=== PATIENT | male | born 1965 | race American Indian/Alaskan Native ===

== ENCOUNTER 2022-04-12 03:20 | Emergency (ER) | payer OTHER ==
[2022-04-12 04:12] LABS: ANION GAP 21.4 mEq/L (7-13); CHLORIDE,CL 106 mmol/L (98-107); ESTIMATED GFR 92 mL/min (>=60); SODIUM,NA 148 mmol/L (136-145)
== END 2022-04-12 05:03 | disposition left against medical advice (07) ==
LOC: DL.ED 03:20
DX: S00.03XA Contusion of scalp, initial encounter (principal); Z88.8 Allergy status to other drugs, medicaments and biological substances; Z79.82 Long term (current) use of aspirin; Z86.16 Personal history of COVID-19; W26.8XXA Contact with other sharp object(s), not elsewhere classified, initial encounter
CPT/HCPCS: 36415; 70450; 72125; 80053; 80307; 83735; 85025; 99282; 99284

== ENCOUNTER 2023-04-14 05:43 | Day surgery (SDC) | payer MEDICAID ==
[2023-04-14] MEDS ORDERED: Midazolam 1 MG/ML 2 ML SDV IV ONE ×3 (05:44→07:10)
[2023-04-14] MEDS ORDERED: fentaNYL 100 MCG/2 ML SDV IV ONE ×3 (05:44→07:09)
[2023-04-14] MEDS ORDERED: Dextrose 5%-0.45% NaCl 1,000 ML IV SCH (06:00)
[2023-04-14] MEDS ORDERED: fentaNYL 100 MCG/2 ML SDV ONE (06:15)
[2023-04-14] MEDS ORDERED: Midazolam 1 MG/ML 2 ML SDV ONE (06:15)
== END 2023-04-14 09:15 | disposition home or self-care (01) ==
LOC: DL.ENDO 05:43
PROVIDERS: ATTEND Internal Medicine Gastroenterology
DX: J44.9 Chronic obstructive pulmonary disease, unspecified (principal); K21.9 Gastro-esophageal reflux disease without esophagitis; F17.210 Nicotine dependence, cigarettes, uncomplicated; F12.90 Cannabis use, unspecified, uncomplicated; Z88.8 Allergy status to other drugs, medicaments and biological substances; Z98.890 Other specified postprocedural states; Z68.32 Body mass index [BMI] 32.0-32.9, adult
CPT/HCPCS: 87077; J2250; J3010; J7042

== ENCOUNTER 2024-12-28 16:05 | Emergency (ER) | payer MEDICAID ==
[2024-12-28] MEDS ORDERED: Pantoprazole 40 MG in Sodium Chloride 0.9% 100 ML IV SCH ×2 (16:12→17:00)
[2024-12-28] MEDS ORDERED: Pantoprazole 80 MG in Sodium Chloride 0.9% 100 ML IV SCH ×2 (16:15→16:30)
[2024-12-28 16:17] LABS: BASOPHILS PERCENT AUTO 0.1 % (0.0-1.0); HEMATOCRIT 46.4 % (40.0-54.0); HEMOGLOBIN 15.7 g/dL (14.0-18.0); LYMPHOCYTES PERCENT AUTO 11.3 % (20.5-50.1); MEAN CORPUSCULAR HEMOGLOBIN 30.1 pg (27.0-34.0); MEAN CORPUSCULAR HGB CONC 33.8 g/dL (33.0-35.0); MEAN CORPUSCULAR VOLUME 88.9 fL (80-100); MONOCYTES PERCENT AUTO 8.7 % (2-8); NEUTROPHILS PERCENT AUTO 79.9 % (42.2-75.2); PLATELET COUNT,PLT 226 10^3/uL (150-450); RED BLOOD CELL COUNT 5.22 10^6/uL (4.6-6.2); WHITE BLOOD CELL COUNT,WBC 21.9 10^3/uL (5.0-10.0)
[2024-12-28] MEDS: Pantoprazole 40 MG Vial IV ONE (16:29)
[2024-12-28 16:35] LABS: INR 1.1 (0.9-1.2); PTT,PARTIAL THROMBOPLSTIN TIME 26.3 SEC (22.0-34.0)
[2024-12-28] MEDS: Ondansetron 4 MG/2 ML SDV IVPUSH ONE ×2 (16:36→19:18)
[2024-12-28] MEDS: Ondansetron 4 MG/2 ML SDV ONE (16:37)
[2024-12-28] MEDS: Thiamine 200 MG in Sodium Chloride 0.9% 1,000 ML IV ONE (16:38)
[2024-12-28] MEDS: cefTRIAXone 1 GM Vial IVPUSH ONE (16:38)
[2024-12-28 16:41] LABS: A/G RATIO 1.1; ALBUMIN 3.8 g/dL (3.4-5.0); ANION GAP 13.3 mEq/L (7-13); BILIRUBIN TOTAL 0.9 mg/dL (0.2-1.0); BUN/CREATININE RATIO 23.5 (No establ ref range); CALCIUM 8.9 mg/dL (8.5-10.1); CREATININE 0.85 mg/dL (0.70-1.30); EST CRCL DRUG DOSING (CG) 92.76 mL/min; POTASSIUM,K 3.3 mmol/L (3.5-5.1); PROTEIN TOTAL,TP 7.4 g/dL (6.4-8.2)
[2024-12-28 16:45] LABS: LACTIC ACID 2.5 mmol/L (0.4-2.0)
[2024-12-28 16:51] LABS: AMPHETAMINES,URINE NEGATIVE (NEGATIVE); BARBITURATES,URINE NEGATIVE (NEGATIVE); BENZODIAZEPINE,URINE NEGATIVE (NEGATIVE); MDMA (ECSTASY), URINE NEGATIVE (NEGATIVE); METHADONE,URINE NEGATIVE (NEGATIVE); METHAMPHETAMINES,URINE NEGATIVE (NEGATIVE); OPIATES,URINE NEGATIVE (NEGATIVE); OXYCODONE,URINE NEGATIVE (NEGATIVE); PHENCYCLIDINE,URINE NEGATIVE (NEGATIVE); TCA,URINE NEGATIVE (NEGATIVE)
[2024-12-28] MEDS: Pantoprazole 40 MG in Sodium Chloride 0.9% 100 ML IV SCH (17:03)
[2024-12-28 19:37] LABS: APPEARANCE,URINE SLIGHTLY CLOUDY (CLEAR); BILIRUBIN,URINE NEGATIVE (NEGATIVE); COLOR,URINE DARK YELLOW (YELLOW); GLUCOSE,URINE NEGATIVE (NEGATIVE); KETONES,URINE 40 (NEGATIVE); LEUKOCYTE ESTERASE,URINE NEGATIVE (NEGATIVE); NITRITE,URINE NEGATIVE (NEGATIVE); OCCULT BLOOD,URINE SMALL (NEGATIVE); PH,URINE 6.5 (5.0-9.0); PROTEIN,URINE 30 (NEGATIVE); UROBILINOGEN,URINE 0.2 mg/dL (0.2-1.0)
[2024-12-28 19:40] LABS: AMORPHOUS SEDIMENT,URINE FEW /HPF (NOT SEEN); BACTERIA,URINE FEW /HPF (0-FEW/HPF); EPITHELIAL CELLS,URINE FEW /HPF (NOT SEEN); MUCUS,URINE MODERATE /LPF (NOT SEEN); WBC,URINE 0-5 /HPF (0-5/HPF)
== END 2024-12-28 20:02 ==
LOC: DL.ED 16:05
DX: K92.2 Gastrointestinal hemorrhage, unspecified (principal); Z88.8 Allergy status to other drugs, medicaments and biological substances; Z79.82 Long term (current) use of aspirin; Z79.899 Other long term (current) drug therapy; Z86.16 Personal history of COVID-19
CPT/HCPCS: 36415; 71045; 80053; 80305; 80307; 81001; 82947; 83605; 83735; 84484; 85025; 85610; 85730; 86850; 86900; 86901; 93005; 96365; 96366; 96367; 96375; 96376; 99285; J0696; J2405; J2470; J3411

== ENCOUNTER 2025-04-07 00:48 | Emergency (ER) | payer SELFPAY | END 2025-04-07 03:44 | disposition home or self-care (01) | LOC: DL.ED 00:48 | DX: S20.212A Contusion of left front wall of thorax, initial encounter (principal); S40.022A Contusion of left upper arm, initial encounter; F10.120 Alcohol abuse with intoxication, uncomplicated; Z88.8 Allergy status to other drugs, medicaments and biological substances; Z79.82 Long term (current) use of aspirin; Z79.899 Other long term (current) drug therapy; Z86.16 Personal history of COVID-19; Y90.9 Presence of alcohol in blood, level not specified; W10.9XXA Fall (on) (from) unspecified stairs and steps, initial encounter; Y93.89 Activity, other specified | CPT/HCPCS: 71101; 99284; A9270 ==

== ENCOUNTER 2025-07-01 01:28 | Emergency (ER) | payer SELFPAY ==
[2025-07-01] MEDS ORDERED: Sodium Chloride 0.9% 10 ML Syringe FLUSH PRN (01:34)
[2025-07-01 01:42] LABS: BASOPHILS PERCENT AUTO 0.1 % (0.0-1.0); EOSINOPHILS PERCENT AUTO 0.1 % (1.0-3.0); LYMPHOCYTES PERCENT AUTO 26.1 % (20.5-50.1); MONOCYTES PERCENT AUTO 6.4 % (2-8); NEUTROPHILS PERCENT AUTO 67.3 % (42.2-75.2); PLATELET COUNT,PLT 512 10^3/uL (150-450); RED BLOOD CELL COUNT 2.61 10^6/uL (4.6-6.2); WHITE BLOOD CELL COUNT,WBC 8.6 10^3/uL (5.0-10.0)
[2025-07-01] MEDS: Thiamine 200 MG/2 ML MDV IVPUSH ONE (01:55)
[2025-07-01 02:01] LABS: B-TYPE NATRIURETIC PEPTIDE,BNP 167.0 pg/ml (0-100)
[2025-07-01 02:02] LABS: ALANINE AMINOTRANSFERASE,ALT 10.0 U/L (16-63); ASPARTATE AMNIOTRANSFERASE,AST 10.0 U/L (15-37); BILIRUBIN TOTAL 0.2 mg/dL (0.2-1.0); BLOOD UREA NITROGEN,BUN 5.0 mg/dL (7-18); CARBON DIOXIDE,CO2 27.0 mmol/L (21-32); CHLORIDE,CL 108.0 mmol/L (98-107); CREATININE 0.96 mg/dL (0.70-1.30); EST CRCL DRUG DOSING (CG) 84.9 mL/min; ETHANOL BLOOD MEDICAL 231.0 mg/dL (0); GLUCOSE RANDOM 124.0 mg/dL (70-99); POTASSIUM,K 3.1 mmol/L (3.5-5.1); PROTEIN TOTAL,TP 6.1 g/dL (6.4-8.2); SODIUM,NA 145.0 mmol/L (136-145)
[2025-07-01 02:06] LABS: A/G RATIO 0.61; ESTIMATED GFR 92.0 mL/min (>=60)
[2025-07-01 02:08] LABS: INR 1.1 (0.9-1.2)
[2025-07-01] MEDS: Iopamidol 612 MG/ML 100 ML Bottle IVPUSH ONE (02:44)
[2025-07-01] MEDS: Octreotide 100 MCG/ML SDV IVPUSH ONE (03:55)
[2025-07-01] MEDS: Octreotide 100 MCG in Sodium Chloride 0.9% 99 ML IV SCH (03:57)
== END 2025-07-01 05:30 ==
LOC: DL.ED 01:28
DX: K92.2 Gastrointestinal hemorrhage, unspecified (principal); D64.9 Anemia, unspecified; F10.10 Alcohol abuse, uncomplicated; F17.200 Nicotine dependence, unspecified, uncomplicated; Z88.8 Allergy status to other drugs, medicaments and biological substances; Z86.16 Personal history of COVID-19; Y90.7 Blood alcohol level of 200-239 mg/100 ml
CPT/HCPCS: 36415; 36430; 74177; 80053; 80307; 82272; 83605; 83690; 83735; 83880; 85025; 85610; 86850; 86900; 86901; 86920; 86922; 96365; 96375; 99285; J0696; J2354; J2470; J3411; P9016; Q9967